=== PATIENT | female | born 1980 | race Caucasian/White ===

== ENCOUNTER 2018-12-12 13:19 | Emergency (ER) | payer OTHER ==
--- NOTE | 2018-12-12 13:52 | Emergency Department Report ---
Chief Complaint: Abdominal Pain Stated Complaint: VOMIT/DIZZY/FEVER Time Seen by Provider: 12/12/18 13:49 - HPI History of Present Illness: Pt is c/o of N/V that began yesterday Pt is unable to keep anything down no abdominal pain no sick contacts no diarrhea, no fever no recent travel no dysuria VSS MSE complete MSE screening note: Focused history and physical exam performed. Due to findings the following was ordered: UA, CBC, BMP ED Disposition for MSE Condition: Stable Instructions: Abdominal Pain (ED)
[2018-12-12 14:14] LABS: Basophils % (Auto) 0.3 % (0.0-1.8); Eosinophils % (Auto) 0.3 % (0.0-4.3); Hematocrit 35.4 % (30.3-42.9); Hemoglobin 11.4 gm/dl (10.1-14.3); Lymphocytes % (Auto) 29.6 % (13.4-35.0); Mean Corpuscular HGB Conc 32 % (30-34); Mean Corpuscular Volume 71 fl (79-97); Monocytes # (Auto) 0.9 K/mm3 (0.0-0.8); Monocytes % (Auto) 8.9 % (0.0-7.3); Platelet Count 494 K/mm3 (140-440)
[2018-12-12 14:27] LABS: BUN/Creatinine Ratio 25; Blood Urea Nitrogen 10 mg/dL (7-17); Calcium 9.1 mg/dL (8.4-10.2); Hemolysis Index 1
[2018-12-12] MEDS ORDERED: ZOFRAN ODT PO ONE (16:48)
--- NOTE | 2018-12-12 16:51 | Emergency Department Report ---
ED Abdominal Pain HPI - General Chief Complaint: Abdominal Pain Stated Complaint: VOMIT/DIZZY/FEVER Time Seen by Provider: 12/12/18 13:49 Source: patient Mode of arrival: Ambulatory Limitations: No Limitations - History of Present Illness Initial Comments: She is a 38-year-old female who comes to the ER today with numerous complaints including nausea and vomiting, abdominal pain, and dizziness. She states that she has been vomiting all day. She has been in the ER now 3 hours and has had no vomiting. Her vital signs are stable she is not tachycardic she is not hypotensive and she is afebrile. Last menstrual cycle 11/30/2018. Medical history none medications none MD Complaint: abdominal pain (patient is a 38-year-old female comes to the) Migration to: suprapubic Severity: mild Improves With: nothing Worsens With: nothing Associated Symptoms: nausea, vomiting. denies: diarrhea, chills, constipation, dysuria, hematemesis, hematochezia, melena, hematuria, anorexia - Related Data Previous Rx's Medication Instructions Recorded Last Taken Type Ondansetron [Zofran Odt] 4 mg PO Q8HR PRN #10 tab.rapdis 12/12/18 Unknown Rx Allergies Allergy/AdvReac Type Severity Reaction Status Date / Time No Known Allergies Allergy Verified 12/12/18 13:21 ED Review of Systems ROS: Stated complaint: VOMIT/DIZZY/FEVER Other details as noted in HPI Comment: All other systems reviewed and negative Constitutional: see HPI, fever. denies: chills Eyes: denies: eye pain ENT: denies: ear pain Respiratory: denies: cough Cardiovascular: denies: chest pain Endocrine: denies: flushing Gastrointestinal: as per HPI, abdominal pain, nausea, vomiting Genitourinary: as per HPI. denies: urgency, dysuria Musculoskeletal: denies: back pain Neurological: denies: headache Psychiatric: denies: depression Hematological/Lymphatic: denies: easy bleeding ED Past Medical Hx - Past Medical History Previous Medical History?: No - Surgical History Past Surgical History?: Yes Additional Surgical History: c-sections - Family History Family history: no significant - Social History Smoking Status: Never Smoker Substance Use Type: None - Medications Home Medications: Home Medications Medication Instructions Recorded Confirmed Last Taken Type Ondansetron [Zofran Odt] 4 mg PO Q8HR PRN #10 tab.rapdis 12/12/18 Unknown Rx ED Physical Exam - General Limitations: No Limitations General appearance: alert - Head Head exam: Present: atraumatic - Eye Eye exam: Present: normal appearance, PERRL Pupils: Present: normal accommodation - ENT ENT exam: Present: normal exam - Neck Neck exam: Present: normal inspection - Respiratory Respiratory exam: Present: normal lung sounds bilaterally - Cardiovascular Cardiovascular Exam: Present: regular rate - GI/Abdominal GI/Abdominal exam: Present: soft, normal bowel sounds - Rectal Rectal exam: Present: deferred - Extremities Exam Extremities exam: Present: normal inspection, full ROM - Back Exam Back exam: Present: normal inspection, full ROM - Neurological Exam Neurological exam: Present: alert, oriented X3, CN II-XII intact, normal gait - Psychiatric Psychiatric exam: Present: normal affect, normal mood - Skin Skin exam: Present: warm, dry ED Course Vital Signs 12/12/18 12/12/18 13:49 17:43 Temperature 97.9 F 98.3 F Pulse Rate 73 69 Respiratory 18 15 Rate Blood Pressure 123/83 107/67 O2 Sat by Pulse 98 99 Oximetry ED Medical Decision Making - Lab Data Result diagrams: 12/12/18 14:00 12/12/18 14:00 - Medical Decision Making Labs 12/12/18 12/12/18 12/12/18 14:00 14:00 15:33 WBC 10.2 RBC 5.00 Hgb 11.4 Hct 35.4 MCV 71 L MCH 23 L MCHC 32 RDW 18.0 H Plt Count 494 H Lymph % (Auto) 29.6 [place] % (Auto) 8.9 H Eos % (Auto) 0.3 Baso % (Auto) 0.3 Lymph # 3.0 [place] # 0.9 H Eos # 0.0 Baso # 0.0 Seg Neutrophils % 60.9 Seg Neutrophils # 6.2 Sodium 133 L Potassium 4.4 Chloride 98.3 Carbon Dioxide 24 Anion Gap 15 BUN 10 Creatinine 0.4 L Estimated GFR > 60 BUN/Creatinine Ratio 25 Glucose 90 Calcium 9.1 Urine Color Yellow Urine Turbidity Slightly-cloudy Urine pH 5.0 Ur Specific [place] 1.015 Urine Protein <15 mg/dl Urine Glucose (UA) Neg Urine Ketones Neg Urine Blood Neg Urine Nitrite Neg Urine Bilirubin Neg Urine Urobilinogen < 2.0 Ur Leukocyte Esterase Tr Urine WBC (Auto) 3.0 Urine RBC (Auto) 4.0 U Epithel Cells (Auto) 14.0 H Urine Bacteria (Auto) 2+ Urine Mucus 2+ Urine HCG, Qual Negative Vital Signs 12/12/18 13:49 Temperature 97.9 F Pulse Rate 73 Respiratory 18 Rate Blood Pressure 123/83 O2 Sat by Pulse 98 Oximetry My Active Orders 12/12/18 16:48 Communication order NOW pt has had no vomiting in ER tolerating po vss preg neg ambulatory dc home with dc plan of care Critical care attestation.: If time is entered above; I have spent that time in minutes in the direct care of this critically ill patient, excluding procedure time. ED Disposition Clinical Impression: Gastroenteritis Disposition: DC-01 TO HOME OR SELFCARE Is pt being admited?: No Does the pt Need Aspirin: No Condition: Stable Instructions: Gastroenteritis (ED) Additional Instructions: rest hydrate well med as ordered today motrin or tylenol for pain bland diet follow up pcp in 48 hours for recheck Prescriptions: Ondansetron [Zofran Odt] 4 mg PO Q8HR PRN #10 tab.rapdis PRN Reason: Vomiting Referrals: PAUL KHALIL MD [Primary Care Provider] - 3-5 Days Forms: Work/School Release Form(ED) Time of Disposition: 17:51
[2018-12-12 17:05] LABS: Bacteria,Urine 2+ /HPF (Negative); Bilirubin,Urine NEG (Negative); Blood,Urine NEG (Negative); Color,Urine Yellow (Yellow); Mucus,Urine 2+ /HPF; Protein,Urine <15 mg/dL mg/dL (Negative); Urobilinogen,Urine < 2.0 mg/dL (<2.0)
[2018-12-12 17:45] LABS: HCG Qualitative,Urine Negative (Negative)
[2018-12-12 17:59] VITALS: BP 107/67
== END 2018-12-12 18:16 | disposition home or self-care (01) ==
LOC: ED 13:19
DX: K52.9 Noninfective gastroenteritis and colitis, unspecified (principal)
CPT/HCPCS: 36415; 80048; 81001; 81025; 85025; 99283; Q0162

== ENCOUNTER 2019-10-17 18:58 | Emergency (ER) | payer SELFPAY ==
[2019-10-17 21:03] VITALS: BP 126/76
--- NOTE | 2019-10-17 21:17 | Emergency Department Report ---
- General Chief complaint: Extremity Problem,Nontraumatic Stated complaint: RT FOOT NUMB/WORK INJURY PAIN Time Seen by Provider: 10/17/19 21:04 Source: patient Mode of arrival: Ambulatory Limitations: No Limitations - History of Present Illness MD complaint: insect bite/sting (occured while driving her car earlier today felt a severe burn and sting followed by redness and swelling) -: hour(s) (4) Location: RLE Severity: moderate Quality: dull Consistency: constant Improves with: none Worsens with: none Context: none Associated symptoms: denies other symptoms Treatments Prior to Arrival: none - Related Data Previous Rx's Medication Instructions Recorded Last Taken Type Ondansetron [Zofran Odt] 4 mg PO Q8HR PRN #10 tab.rapdis 12/12/18 Unknown Rx Clindamycin [Clindamycin CAP] 150 mg PO Q8HR #21 capsule 10/17/19 Unknown Rx Mupirocin [Bactroban 2%] 1 applic TP TID #1 tube 10/17/19 Unknown Rx predniSONE [Deltasone] 20 mg PO QDAY #7 tab 10/17/19 Unknown Rx Allergies Allergy/AdvReac Type Severity Reaction Status Date / Time No Known Allergies Allergy Verified 12/12/18 13:21 Abscess Boil HPI - HPI Chief Complaint: Extremity Problem,Nontraumatic Stated Complaint: RT FOOT NUMB/WORK INJURY PAIN Time Seen by Provider: 10/17/19 21:04 Home Medications: Previous Rx's Medication Instructions Recorded Last Taken Type Ondansetron [Zofran Odt] 4 mg PO Q8HR PRN #10 tab.rapdis 12/12/18 Unknown Rx Clindamycin [Clindamycin CAP] 150 mg PO Q8HR #21 capsule 10/17/19 Unknown Rx Mupirocin [Bactroban 2%] 1 applic TP TID #1 tube 10/17/19 Unknown Rx predniSONE [Deltasone] 20 mg PO QDAY #7 tab 10/17/19 Unknown Rx Allergies/Adverse Reactions: Allergies Allergy/AdvReac Type Severity Reaction Status Date / Time No Known Allergies Allergy Verified 12/12/18 13:21 ED Review of Systems ROS: Stated complaint: RT FOOT NUMB/WORK INJURY PAIN Other details as noted in HPI Comment: All other systems reviewed and negative ED Past Medical Hx - Past Medical History Previous Medical History?: No - Surgical History Past Surgical History?: Yes Additional Surgical History: c-sections - Social History Smoking Status: Never Smoker Substance Use Type: None - Medications Home Medications: Home Medications Medication Instructions Recorded Confirmed Last Taken Type Ondansetron [Zofran Odt] 4 mg PO Q8HR PRN #10 tab.rapdis 12/12/18 Unknown Rx Clindamycin [Clindamycin CAP] 150 mg PO Q8HR #21 capsule 10/17/19 Unknown Rx Mupirocin [Bactroban 2%] 1 applic TP TID #1 tube 10/17/19 Unknown Rx predniSONE [Deltasone] 20 mg PO QDAY #7 tab 10/17/19 Unknown Rx ED Physical Exam - General Limitations: No Limitations General appearance: alert, in no apparent distress - Head Head exam: Present: atraumatic, normocephalic - Eye Eye exam: Present: normal appearance - ENT ENT exam: Present: mucous membranes moist - Neck Neck exam: Present: normal inspection, full ROM - Respiratory Respiratory exam: Present: normal lung sounds bilaterally. Absent: respiratory distress - Cardiovascular Cardiovascular Exam: Present: regular rate, normal rhythm. Absent: systolic murmur, diastolic murmur, rubs, gallop - GI/Abdominal GI/Abdominal exam: Present: soft, normal bowel sounds - Extremities Exam Extremities exam: Present: normal inspection, tenderness (cellulitis to medial lower leg 4 cm diameter .no pustule. no lymphangitis. no discharge from wound. warm to touch. pulse 2+) - Back Exam Back exam: Present: normal inspection - Neurological Exam Neurological exam: Present: alert, oriented X3 - Psychiatric Psychiatric exam: Present: normal affect, normal mood - Skin Skin exam: Present: warm, dry, intact, normal color. Absent: rash ED Course Vital Signs 10/17/19 20:59 Temperature 98.4 F Pulse Rate 73 Respiratory 18 Rate Blood Pressure 126/76 Blood Pressure 126/76 [Right] O2 Sat by Pulse 100 Oximetry ED Medical Decision Making - Medical Decision Making This patient presents with initial presentation of local erythema, warmth, swelling concerning for cellulitis. Sensitivity/pain to light touch around the erythematous area. No lymphangitic spread visible and no fluid pockets or fluctuance c/f abscess noted. Low c/f osteomyelitis or DVT. No immune compromise, bullae, pain out of proportion, or rapid progression c/f necrotizing fasciitis. In ED: Erythema outlined Rx: Cephalexin 500mg PO q6hrs,_ Disposition: No evidence of serious bacterial illness requiring admission for IV antibiotics. Nontoxic appearing, VSS. Low risk for treatment failure based on history. Will discharge home with PO antibiotics and return precautions discussed at bedside. Critical care attestation.: If time is entered above; I have spent that time in minutes in the direct care of this critically ill patient, excluding procedure time. ED Disposition Clinical Impression: Cellulitis, Insect bite Disposition: DC- TO HOME OR SELFCARE Is pt being admited?: No Does the pt Need Aspirin: No Condition: Stable Instructions: Cellulitis (ED) Prescriptions: Mupirocin [Bactroban 2%] 1 applic TP TID #1 tube Clindamycin [Clindamycin CAP] 150 mg PO Q8HR #21 capsule predniSONE [Deltasone] 20 mg PO QDAY #7 tab Referrals: JULIANA GAONA MD [Staff Physician] - 2-3 Days (wound recheck in 24-48 hours )
== END 2019-10-17 21:15 | disposition home or self-care (01) ==
LOC: ED 18:58
DX: L03.115 Cellulitis of right lower limb (principal); Z79.899 Other long term (current) drug therapy; W57.XXXA Bitten or stung by nonvenomous insect and other nonvenomous arthropods, initial encounter; Y93.89 Activity, other specified; Y92.89 Other specified places as the place of occurrence of the external cause; Y99.8 Other external cause status

== ENCOUNTER 2021-03-10 19:28 | Emergency (ER) | payer SELFPAY ==
[2021-03-10 20:44] VITALS: BP 125/80
--- NOTE | 2021-03-10 20:51 | Event Note ---
ED Screening Note Date of service: 03/10/21 Time: 20:49 ED Screening Note: 40-year-old female patient presents to emergency department with complaints of epigastric abdominal pain starting yesterday. Patient states the pain is constant, "sharp," progressively worsening since onset. Patient was evaluated in outpatient clinic earlier this morning. She was treated symptomatically with antacids and antispasmodics. States the pain improved minimally for a few minutes but soon returned. Prior surgical history includes . States she does not use alcohol regularly. Last menstrual period was February 02. Denies fever, nausea, vomiting, diarrhea, constipation, rectal bleeding, urinary symptoms. General: Awake, appropriately interactive, no acute distress. Neck: Supple. Full range of motion intact. Cardiovascular: Normal peripheral perfusion. Pulmonary: No respiratory distress. Patient is speaking normally without use of accessory muscles. Abdomen: Soft, non-distended. Epigastric tenderness without guarding, rebound, or rigidity. Skin: No apparent rashes or lesions. Neurological: No facial asymmetry. Speech is clear. Follows commands. Patient is alert and oriented. Musculoskeletal: Moves all four extremities spontaneously with normal range of motion. Psych: Cooperative. Appropriate mood and affect. I have greeted and performed a focused rapid initial assessment of this patient. A comprehensive ED assessment and evaluation of the patient, analysis of all test results, and completion of the medical decision-making process will be conducted by additional ED providers. This initial assessment/diagnostic orders/clinical plan/treatment(s) is/are subject to change based on patients health status, clinical progression and re-assessment. Further treatment and workup at subsequent clinical provider's discretion. Patient/guardian urged not to elope from the ED as their condition may be serious if not clinically assessed and managed.
[2021-03-10 21:04] LABS: Basophils # (Auto) 0.1 K/mm3 (0.0-0.1); Basophils % (Auto) 0.8 % (0.0-1.8); Eosinophils % (Auto) 0.3 % (0.0-4.3); Hematocrit 32.1 % (30.3-42.9); Hemoglobin 10.3 gm/dl (10.1-14.3); Lymphocytes # (Auto) 2.9 K/mm3 (1.2-5.4); Lymphocytes % (Auto) 26.2 % (13.4-35.0); Mean Corpuscular HGB Conc 32 % (30-34); Mean Corpuscular Volume 71 fl (79-97); Monocytes # (Auto) 1.1 K/mm3 (0.0-0.8); Monocytes % (Auto) 10.3 % (0.0-7.3); Platelet Count 438 K/mm3 (140-440); Red Cell Distribution Width 18.1 % (13.2-15.2)
[2021-03-10 21:27] LABS: Alanine Aminotransferase 40 units/L (7-56); Albumin 4.2 g/dL (3.9-5); Blood Urea Nitrogen 14 mg/dL (7-17); Calcium 9.1 mg/dL (8.4-10.2); Hemolysis Index 12
[2021-03-10 21:29] LABS: BUN/Creatinine Ratio 28
[2021-03-10] MEDS ORDERED: ALUM-MAG HYDROXIDE-SIMETHICONE 200-200-20MG/5ML ORAL LIQD 30 ML PO ONE (23:56)
[2021-03-10] MEDS ORDERED: ONDANSETRON 4 MG ODT TAB PO ONE (23:56)
[2021-03-10] MEDS ORDERED: LIDOCAINE VISCOUS 2% 15 ML ORAL LIQD PO ONE (23:56)
[2021-03-10] MEDS ORDERED: FAMOTIDINE 20 MG/2 ML INJ IV ONE (23:56)
[2021-03-10] MEDS ORDERED: DICYCLOMINE 20 MG TAB PO ONE (23:56)
[2021-03-11] MEDS ORDERED: FAMOTIDINE 20 MG TAB PO ONE (00:24)
[2021-03-11 02:36] LABS: Bilirubin,Urine NEG (Negative); Blood,Urine NEG (Negative); Color,Urine Colorless (Yellow); Mucus,Urine FEW /HPF; Protein,Urine <15 mg/dL mg/dL (Negative); Urobilinogen,Urine < 2.0 mg/dL (<2.0)
--- NOTE | 2021-03-11 02:54 | Emergency Department Report ---
ED Abdominal Pain HPI - General Chief Complaint: Abdominal Pain Stated Complaint: STOMACH PAIN Source: patient Mode of arrival: Ambulatory Limitations: No Limitations - History of Present Illness Initial Comments: Patient is a 40-year-old female with no past medical history and who is s/p cholecystectomy who presents to the ED with complaint of acute onset persistent epigastric pain with nausea for the last 24 hours. Patient states the pain is sharp, burning and constant and worse with food. Patient states that she was initially evaluated at another acute care clinic but was advised to come to the ED for further evaluation if symptoms get worse. Patient denies vomiting, diarrhea, chest pain, shortness of breath, fever, chills, cough, sore throat, back pain, dysuria, urinary frequency and urgency, vaginal bleeding, vaginal discharge, hematemesis, hematochezia or constipation. MD Complaint: abdominal pain (epigastric pain) -: Sudden, hour(s) (24) Location: epigastric Radiation: none Migration to: no migration Severity: severe Severity scale (0 -10): 7 Quality: cramping, sharp Consistency: constant Improves With: nothing Worsens With: eating, vomiting Context: other (possibly GERD) Associated Symptoms: denies other symptoms, nausea, anorexia. denies: vomiting, diarrhea, fever, constipation, dysuria, hematemesis, melena, syncope - Related Data LMP Date: 03/04/21 Previous Rx's Medication Instructions Recorded Last Taken Type Ondansetron [Zofran Odt] 4 mg PO Q8HR PRN #10 tab.lainedis 12/12/18 Unknown Rx Clindamycin [Clindamycin CAP] 150 mg PO Q8HR #21 capsule 10/17/19 Unknown Rx Mupirocin [Bactroban 2%] 1 applic TP TID #1 tube 10/17/19 Unknown Rx predniSONE [Deltasone] 20 mg PO QDAY #7 tab 10/17/19 Unknown Rx Dicyclomine [Bentyl] 20 mg PO Q6H PRN #30 tablet 03/11/21 Unknown Rx Esomeprazole Magnesium [NexIUM] 40 mg PO QDAY #60 capsule. 03/11/21 Unknown Rx Famotidine [Pepcid] 20 mg PO BID #60 tablet 03/11/21 Unknown Rx Ondansetron [Zofran Odt] 4 mg PO Q6HR PRN #15 tab.lainedis 03/11/21 Unknown Rx Allergies Allergy/AdvReac Type Severity Reaction Status Date / Time No Known Allergies Allergy Verified 12/12/18 13:21 ED Review of Systems ROS: Stated complaint: STOMACH PAIN Other details as noted in HPI Constitutional: denies: chills, fever Eyes: denies: eye pain, eye discharge, vision change ENT: denies: ear pain, throat pain Respiratory: denies: cough, shortness of breath, wheezing Cardiovascular: denies: chest pain, palpitations Endocrine: no symptoms reported Gastrointestinal: abdominal pain, nausea. denies: diarrhea Genitourinary: denies: urgency, dysuria, discharge Musculoskeletal: denies: back pain, joint swelling, arthralgia Skin: denies: rash, lesions Neurological: denies: headache, weakness, paresthesias Psychiatric: denies: anxiety, depression Hematological/Lymphatic: denies: easy bleeding, easy bruising ED Past Medical Hx - Past Medical History Previous Medical History?: No - Surgical History Past Surgical History?: Yes Additional Surgical History: c-sections, "Bladder surgery with drainage tube then reversed" per patient - Social History Smoking Status: Never Smoker Substance Use Type: None - Medications Home Medications: Home Medications Medication Instructions Recorded Confirmed Last Taken Type Ondansetron [Zofran Odt] 4 mg PO Q8HR [facility] Unknown Rx Clindamycin [Clindamycin CAP] 150 mg PO Q8HR #21 capsule 10/17/19 Unknown Rx Mupirocin [Bactroban 2%] 1 applic TP TID #1 tube 10/17/19 Unknown Rx predniSONE [Deltasone] 20 mg PO QDAY #7 tab 10/17/19 Unknown Rx Dicyclomine [Bentyl] 20 mg PO Q6H PRN #30 tablet 03/11/21 Unknown Rx Esomeprazole Magnesium [NexIUM] 40 mg PO QDAY #60 capsule. 03/11/21 Unknown Rx Famotidine [Pepcid] 20 mg PO BID #60 tablet 03/11/21 Unknown Rx Ondansetron [Zofran Odt] 4 mg PO Q6HR PRN #15 [facility] 03/11/21 Unknown Rx ED Physical Exam - General Limitations: No Limitations General appearance: alert, in no apparent distress - Head Head exam: Present: atraumatic, normocephalic, normal inspection - Eye Eye exam: Present: normal appearance, PERRL, EOMI Pupils: Present: normal accommodation - ENT ENT exam: Present: normal exam, normal orophraynx, mucous membranes moist, TM's normal bilaterally, normal external ear exam - Neck Neck exam: Present: normal inspection, full ROM - Respiratory Respiratory exam: Present: normal lung sounds bilaterally. Absent: respiratory distress, wheezes, rales, rhonchi, chest wall tenderness, decreased breath sounds, prolonged expiratory - Cardiovascular Cardiovascular Exam: Present: regular rate, normal rhythm, normal heart sounds. Absent: systolic murmur, diastolic murmur, rubs, gallop - GI/Abdominal GI/Abdominal exam: Present: soft, tenderness (Palpable epigastric tenderness), normal bowel sounds. Absent: guarding, rebound, hyperactive bowel sounds, hypoactive bowel sounds - Extremities Exam Extremities exam: Present: normal inspection, full ROM, normal capillary refill - Back Exam Back exam: Present: normal inspection, full ROM. Absent: tenderness, CVA tenderness (R), CVA tenderness (L), muscle spasm, paraspinal tenderness, vertebral tenderness - Neurological Exam Neurological exam: Present: alert, oriented X3, CN II-XII intact, normal gait, reflexes normal - Psychiatric Psychiatric exam: Present: normal affect, normal mood - Skin Skin exam: Present: warm, dry, intact, normal color. Absent: rash ED Course Vital Signs 03/10/21 19:32 Temperature 98.9 F Pulse Rate 93 H Respiratory 18 Rate Blood Pressure 125/80 O2 Sat by Pulse 97 Oximetry ED Medical Decision Making - Lab Data Result diagrams: 03/10/21 20:51 03/10/21 20:51 - Medical Decision Making This is a 40-year-old female with no past medical history and who is s/p cholecystectomy who presents to the ED with complaint of acute onset persistent epigastric pain with nausea for the last 24 hours. Patient states the pain is sharp, burning and constant and worse with food. Patient states that she was initially evaluated at another acute care clinic but was advised to come to the ED for further evaluation if symptoms get worse. In the ED, patient is alert and oriented x3 and is not in any distress. Patient is hemodynamically stable. Lab test results were reviewed and are all nonactionable. Patient was treated in the ED with antacids, antiemetics, and pain medications. On reevaluation, patient's pain is well controlled medications. Based on the history and physical exam findings, the patient symptoms are likely due to GERD. All lab test results unremarkable although other differential diagnosis such as gastritis, pancreatitis, UTI, are on the differentials the patient symptoms are likely due to GERD complications. On reevaluation, patient's pain is well controlled medications. Patient will discharge home on antacids, antiemetics and pain medications and advised follow-up with her primary care physician in 5 to 7 days for reevaluation. Patient is advised return to the ED immediately if symptoms get worse - Differential Diagnosis GERD; Gastritis; Gastroenteritis; UTI; Critical care attestation.: If time is entered above; I have spent that time in minutes in the direct care of this critically ill patient, excluding procedure time. ED Disposition Clinical Impression: Abdominal pain, acute, epigastric GERD (gastroesophageal reflux disease) Qualifiers: Esophagitis presence: esophagitis presence not specified Qualified Code(s): K21.9 - Gastro-esophageal reflux disease without esophagitis Disposition: TO HOME OR SELFCARE Is pt being admited?: No Does the pt Need Aspirin: No Condition: Stable Instructions: Abdominal Pain (ED), Abdominal Pain, Adult, [id number], Food Choices for Gastroesophageal Reflux Disease, Adult, Gastroesophageal Reflux Disease, Adult, [id number] Additional Instructions: All lab test results were reviewed and are all nonactionable. Your symptoms are likely due to GERD complications. Therefore take medications with food, drink plenty of fluids and follow-up with your primary care physician in 5 to 7 days for reevaluation. Return to the ED immediately if symptoms get worse. Prescriptions: Dicyclomine [Bentyl] 20 mg PO Q6H PRN #30 tablet PRN Reason: Abdominal pain Esomeprazole Magnesium [NexIUM] 40 mg PO QDAY #60 capsule. Famotidine [Pepcid] 20 mg PO BID #60 tablet Ondansetron [Zofran Odt] 4 mg PO Q6HR PRN #15 tab.rapdis PRN Reason: Nausea Referrals: [facility] [Provider Group] - 3-5 Days Forms: Work/School Release Form(ED) Time of Disposition: 02:58 Print Language: TANZANIAN
[2021-03-11] MEDS ORDERED: MORPHINE 4 MG/1 ML INJ IM ONE (03:37)
[2021-03-11] MEDS ORDERED: ONDANSETRON 4 MG ODT TAB PO ONE (03:37)
== END 2021-03-11 04:05 | disposition home or self-care (01) ==
LOC: ED 19:28
DX: K21.9 Gastro-esophageal reflux disease without esophagitis (principal); Z98.890 Other specified postprocedural states; Z79.899 Other long term (current) drug therapy
CPT/HCPCS: 36415; 80053; 81001; 83690; 83735; 84703; 85025; 96372; 99283; J2270; Q0162